=== PATIENT | female | born 1995 ===

== ENCOUNTER → 2019-04-02 | Outpatient (CLI) | payer OTHER | END | disposition home or self-care (01) | LOC: PRENATAL 14:00 | DX: O99.89 Other specified diseases and conditions complicating pregnancy, childbirth and the puerperium (principal) ==

== ENCOUNTER → 2019-05-05 | Outpatient (CLI) | payer OTHER | END | disposition home or self-care (01) | LOC: PRENATAL 15:00 | DX: O99.89 Other specified diseases and conditions complicating pregnancy, childbirth and the puerperium (principal) ==

== ENCOUNTER → 2019-06-25 | Outpatient (CLI) | payer OTHER | END | disposition home or self-care (01) | LOC: PRENATAL 13:30 | DX: O26.843 Uterine size-date discrepancy, third trimester (principal); O99.89 Other specified diseases and conditions complicating pregnancy, childbirth and the puerperium; O36.8131 Decreased fetal movements, third trimester, fetus 1 ==

== ENCOUNTER → 2019-08-04 | Outpatient (CLI) | payer OTHER ==
[~2019-08-04] MED LIST: IBUPROFEN400 MG PO; LEVOTHYROXINE88 MCG PO; PRENATAL TABLE1 EAC1 PO; SYNTHROID88 MCG PO; VALTREX1000 MG PO
== END | disposition home or self-care (01) ==
LOC: NST 14:39
DX: Z34.83 Encounter for supervision of other normal pregnancy, third trimester (principal)

== ENCOUNTER 2019-08-11 11:58 | Inpatient (IN) | payer OTHER ==
[~2019-08-11] VITALS: Ht 175.3 cm; Wt 112.0 kg
[2019-08-11] MEDS ORDERED: SYNTHROID88 MCG PO (12:19)
[2019-08-11] MEDS ORDERED: PRENATAL TABLE1 EAC1 PO (12:19)
[2019-08-11] MEDS ORDERED: VALTREX1000 MG PO (12:19)
[2019-08-14] MEDS ORDERED: LEVOTHYROXINE88 MCG PO (12:17)
[2019-08-14] MEDS ORDERED: IBUPROFEN400 MG PO (12:17)
[2019-08-14] MEDS ORDERED: PRENATAL TABLE1 EAC1 PO (12:17)
== END 2019-08-14 12:28 | DRG 806 ==
LOC: LDR 11:58 → OB/GYN 08-12 17:39
PROVIDERS: ADMIT Obstetrics & Gynecology
PROC: 4A1HXCZ Monitoring of Products of Conception, Cardiac Rate, External Approach (ICD-10-PCS; 2019-08-11)
PROC: 10E0XZZ Delivery of Products of Conception, External Approach (ICD-10-PCS; principal; 2019-08-12)
PROC: 0KQM0ZZ Repair Perineum Muscle, Open Approach (ICD-10-PCS; 2019-08-12)
PROC: 3E033VJ Introduction of Other Hormone into Peripheral Vein, Percutaneous Approach (ICD-10-PCS; 2019-08-12)
DX: O70.1 Second degree perineal laceration during delivery (principal); O41.03X0 Oligohydramnios, third trimester, not applicable or unspecified; Z37.0 Single live birth; Z3A.38 38 weeks gestation of pregnancy